=== PATIENT | male | born 1980 | race Caucasian/White ===

== ENCOUNTER 2025-01-25 12:41 | Emergency (ER) | payer OTHER, SELFPAY ==
[~2025-01-25] VITALS: Ht 170.2 cm; Wt 84.1 kg
[2025-01-25 12:51] VITALS: TEMP 97.3
[2025-01-25 13:25] LABS: BASO # 0.0 10^3/uL (0.0-0.2); BASO % 0.6 % (0.0-1.0); EOS # 0.3 10^3/uL (0.0-0.5); EOS % 3.8 % (0.0-3.0); LYMPH # 2.0 10^3/uL (1.5-5.0); LYMPH % 27.9 % (24.0-44.0); MONO # 0.4 10^3/uL (0.0-0.8); MONO % 5.7 % (2.0-8.0); NEUTROPHILS # 4.4 10^3/uL (1.5-8.5); NEUTROPHILS % 61.7 % (36.0-66.0); PLATELET COUNT, AUTOMATED 236 10^3/uL (150-450)
[2025-01-25] MEDS: NS (Normal Saline) 0.9% 1,000 ML IV ONE (13:35)
[2025-01-25 13:43] LABS: ALT/SGPT 42 U/L (7.0-40); AST/SGOT 30 U/L (<34); CALCIUM LEVEL 9.0 MG/DL (8.5-10.1); CARBON DIOXIDE LEVEL 26 MMOL/L (20-31); CHLORIDE LEVEL 106 MMOL/L (98-107); CK-MB VALUE MASS 6.5 NG/ML (<3.6); CPK CREATINE PHOSPHOKINASE 395 U/L (46-171); CREATININE FOR GFR 0.81 MG/DL (0.70-1.30); GLOMERULAR FILTRATION RATE > 90.0 (>60); MB/CK RELATIVE INDEX 1.64 (< OR =4); POTASSIUM SERUM 3.9 MMOL/L (3.5-5.1); SODIUM LEVEL 139 MMOL/L (136-145)
[2025-01-25 15:41] LABS: CK-MB VALUE MASS 5.4 NG/ML (<3.6)
[2025-01-25 15:46] LABS: CPK CREATINE PHOSPHOKINASE 311.0 U/L (46-171); MB/CK RELATIVE INDEX 1.73 (< OR =4)
[2025-01-25 16:00] VITALS: O2SAT 94
[2025-01-25 16:25] VITALS: O2SAT 97
[2025-01-25 17:17] VITALS: BP 150/95
[2025-01-25] MEDS ORDERED: OMEP20TA17 PO (18:05)
[2025-01-25] MEDS ORDERED: HOME MED LIST COMPLETE! XX SCH (18:05)
[2025-01-25 20:47] LABS: CK-MB VALUE MASS 4.4 NG/ML (<3.6)
[2025-01-25 20:50] LABS: CPK CREATINE PHOSPHOKINASE 288.0 U/L (46-171); MB/CK RELATIVE INDEX 1.52 (< OR =4)
== END 2025-01-25 19:30 | disposition left against medical advice (07) ==
LOC: M ED 12:41
DX: R55 Syncope and collapse (principal); Z53.9 Procedure and treatment not carried out, unspecified reason; F12.10 Cannabis abuse, uncomplicated; Z88.5 Allergy status to narcotic agent